=== PATIENT | male | born 1985 | race African-American/Black ===

== ENCOUNTER → 2021-02-24 | Outpatient (CLI) | payer BC ==
--- NOTE | 2021-02-24 15:31 | RAD ---
EXAMINATION: CT abdomen and pelvis without IV contrast. INDICATION:35 years, Male, abdominal pain. TECHNIQUE: Axial CT images of the abdomen and pelvis were obtained. Coronal and sagittal reformatted performed. COMPARISON: None. Exposure: One or more of the following individualized dose reduction techniques were utilized for thi s examination: 1. Automated exposure control 2. Adjustment of the mA and/or kV according to patient size 3. Use of iterative reconstruction technique. FINDINGS: LOWER CHEST: Unremarkable. ABDOMEN/PELVIS: Within the limitation of noncontrast exam, Liver, spleen, pancreas, biliary ducts, and adrenal glands and kidneys are unremarkable. Status post cholecystectomy. No bowel obstruction. Normal appendix. Normal caliber abdominal aorta. No abdominope lvic lymphadenopathy. No ascites or pneumoperitoneum. Unremarkable urinary bladder and prostate. MUSCULOSKELETAL STRUCTURES: No acute osseous process. IMPRESSION: No acute intra-abdominal findings. Electronically signed by: Lexis Em MD (02/24/2021 3:28 PM) [facility]
== END ==
LOC: CT 09:52
PROVIDERS: ATTEND Internal Medicine
DX: R10.9 Unspecified abdominal pain (principal); Z90.49 Acquired absence of other specified parts of digestive tract
CPT/HCPCS: 74176